=== PATIENT | female | born 1985 ===

== ENCOUNTER 2018-08-03 21:30 | Emergency (ER) | payer OTHER, MEDICAID ==
[2018-08-03 21:30] VITALS: BMI 25.0
[2018-08-03 21:56] VITALS: BP 145/97; PULSE 93; RESP 20; TEMP 98.2; O2SAT 97
[2018-08-03 22:30] LABS: SQUAMOUS EPITHIAL 1 /hpf (0-5); URINE BILIRUBIN NEGATIVE (NEGATIVE); URINE BLOOD NEGATIVE (NEGATIVE); URINE CLARITY Clear (Clear); URINE COLOR Yellow (YELLOW); URINE GLUCOSE (UA) NORMAL (Normal); URINE LEUKOCYTE ESTERASE NEG Leu/uL (Negative); URINE PROTEIN NEGATIVE (NEGATIVE); URINE UROBILINOGEN NORMAL mg/dL (0.2-1.0)
[2018-08-03 22:37] LABS: HCG,QUALITATIVE URINE NEGATIVE (NEGATIVE)
[2018-08-04] MEDS ORDERED: Emtricitabine-Tenofovir 200 mg-300 mg Tab PO NR (00:15)
[2018-08-04] MEDS ORDERED: Emtricitabine-Tenofovir 200 mg-300 mg Tab PO STA (00:15)
[2018-08-04 01:24] LABS: BASO # 0.1 K/uL (0.0-0.2); BASO % 1.2 % (0.0-2.0); EOS # 0.4 K/uL (0.0-0.7); HEMOGLOBIN 13.7 g/dL (11.0-16.0); LYMPH # 3.6 K/uL (1.0-4.3); LYMPH % 45.8 % (20.0-40.0); MEAN CELL VOLUME 96.1 fL (81.0-99.0); MEAN CORPUSCULAR HEMOGLOBIN 32.8 pg (27.0-31.0); MEAN CORPUSCULAR HGB CONC 34.1 g/dL (33.0-37.0); MEAN PLATELET VOLUME 8.2 fL (7.2-11.7); MONO # 0.4 K/uL (0.0-0.8); MONO % 5.4 % (0.0-10.0); NEUT # 3.4 K/uL (1.8-7.0); NEUT % 42.6 % (50.0-75.0); RBC 4.18 Mil/uL (3.80-5.20)
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
[2018-08-04 01:42] LABS: ALB/GLOB RATIO 2.1 (1.0-2.1); ALBUMIN 4.6 g/dL (3.5-5.0); ALT/SGPT 10 U/L (9-52); AST/SGOT 20 U/L (14-36); BLOOD UREA NITROGEN 12 mg/dL (7-17); CALCIUM 9.4 mg/dl (8.6-10.4); GFR NON-AFRICAN AMERICAN > 60
== END 2018-08-04 01:50 | disposition home or self-care (01) ==
LOC: C.ER 21:30
DX: T76.21XA Adult sexual abuse, suspected, initial encounter (principal); I10 Essential (primary) hypertension; E78.00 Pure hypercholesterolemia, unspecified; F31.9 Bipolar disorder, unspecified